=== PATIENT | male | born 1950 | race Caucasian/White ===

== ENCOUNTER 2016-11-25 13:04 | Emergency (ER) | payer OTHER ==
--- NOTE | 2016-11-25 14:41 | DIAGNOSTIC IMAGING REPORT ---
PROCEDURE: XR CHEST 2 VIEW INDICATION: COUGH TECHNIQUE: PA and lateral views. COMPARISON: Compared to chest x-ray and 03/01/2014 and 12/13/2009. FINDINGS: There is mild chronic elevation of the right hemidiaphragm. Lungs are clear. Heart and mediastinum are of normal size. There is a 2.3 cm chronic dystrophic calcification in the right lower neck (possible thyroid calcification). Thorax is normal. Status post laparoscopic gastric band. IMPRESSION: 1. Mild chronic elevation of the right hemidiaphragm. 2. Otherwise negative chest.
--- NOTE | 2016-11-25 15:24 | ED CLINICAL REPORT ---
Clinical Report - Physicians/Mid Levels [facility] [address] [place] [address] 11/25/2016 13:09 Patient: OFE IGLESIAS Time Seen: 13:29; initial patient contact, initial documentation, patient care assumed. Arrived- By private vehicle. Historian- patient and spouse. HISTORY OF PRESENT ILLNESS Chief Complaint: COUGH and FEVER. This started about 4 days ago and is still present. The illness is described as moderate. The patient has had a cough, nasal congestion and a nasal discharge. He has had scant amounts of thick, yellow, green sputum. No difficulty breathing, chest discomfort or pain, sore throat or sinus pressure. No sinus drainage or ear pain. He has had fever of 99.2 F orally. Additional history - No known contact with a sick individual. No recent travel. Similar symptoms previously: None. Recent medical care: Not recently seen/assessed. REVIEW OF SYSTEMS No headache, vomiting or diarrhea. All systems otherwise negative, except as recorded above. PAST HISTORY See nurses notes. PROBLEMS: Hypoxia. Anemia. Diabetic Ketoacidosis. Hyperkalemia. Renal Failure. Hereditary multiple exostosis. Pancreatitis. Vomiting. Edema. Immunizations. Hypertension. Septic Joint. Diabetes Mellitus. --13:22 Merline Mcdonald. ADDITIONAL SURGERIES: Bone spurt surgery. Cholecystectomy. Knee Surgery. Lap band [2006]. Left knee surgery. Nasal surgery. --13:22 Merline Mcdonald. sleeps with sleep apnea machine and oxygen. SOCIAL HISTORY Never smoker. Not exposed to second-hand smoke at home. No alcohol use or drug use. Is a local resident. He lives with spouse. FAMILY HISTORY Negative. ADDITIONAL NOTES The nursing notes have been reviewed with agreement regarding the chief complaint, HPI, ROS, PMH and patient medications and allergies. PHYSICAL EXAM Vital Signs: 11/25/2016 13:14 BP: 120/65. HR: 94. RR: 22. O2 saturation: 90%. Temp: 98.7 F. Have been reviewed as abnormal. Blood pressure normal. Heart rate normal. Respiratory rate normal. Temperature normal. Oxygen saturation low. Appearance: Alert. No acute distress. Eyes: Pupils equal, round and reactive to light. Eyes normal inspection. ENT: Ears normal. Nose normal. Pharynx normal. Uvula midline. Neck: Normal inspection. Neck supple. CVS: Normal heart rate and rhythm. Heart sounds normal. Pulses normal. Respiratory: No respiratory distress. Breath sounds abnormal. Expiratory mild bilateral wheezes diffusely (PO94%). Abdomen: Obese (morbid). Back: Normal inspection. Skin: Skin warm and dry. Normal skin color. No rash. Normal skin turgor. Extremities: Extremities exhibit normal ROM. No lower extremity edema. Neuro: Oriented X 3. No motor deficit. No sensory deficit. LABS, X-RAYS, AND EKG Chest X-ray: Normal Chest X-Ray. (IMPRESSION: 1. Mild chronic elevation of the right hemidiaphragm. 2. Otherwise negative chest. Electronically Final signed by:Prateek Pruitt MD 11/25/2016 2:38:16 PM). The X-rays were interpreted by the radiologist and contemporaneously by me. PROGRESS AND PROCEDURES Course of Care: 13:40 11/25/16. pt has brief alissa, nothing alarming, see report for full details 1410. nurse reporting neb tx going now 1450. Resp even and unlabored, nad, B breath sounds CTA, PO91-94% tx options discussed with going home and if any issues return stat, or admit for obs, pt stated he felt much better and did not want to stay, denied any breathing issue. Patient and spouse counseled in person regarding the patient's stable condition, test results and diagnosis. 14:50. Differential Diagnosis: Other possible considerations: bronchitis, pneumonia, chf, copd, emphysema, flu, viral illness, uri. Above considerations are based on history, physical exam and X-Ray data. Differential diagnosis was discussed with patient and patient's spouse. Disposition: Discharged home in good and improved condition (15:24). Condition: good and stable. CLINICAL IMPRESSION 11/25/2016 14:29 BP: 109/46. HR: 97. RR: 20. O2 saturation: 93%. Vital Signs: have been reviewed as normal and appear to be correct. Acute viral bronchitis. INSTRUCTIONS Alternate Tylenol (Acetaminophen) and Motrin (Ibuprofen) for fever, temperature greater than 101 degrees orally. Take according to label instructions. Drink plenty of fluids for the next 24 hours until better. Warnings: GENERAL WARNINGS: Return or contact your physician immediately if your condition worsens or changes unexpectedly, if not improving as expected, or if other problems arise. Specifically return if problem worsens. Prescription Medications: Albuterol HFA oral inhaler: inhale 1 to 2 puffs every four to six hours as needed for difficulty breathing. Dispense one (1) unit. No refills. Prednisone 20 mg: take 3 orally every day for 5 days. Dispense fifteen (15). No refills. Follow-up: Follow up with your doctor in about three days even if well. Call for an appointment. Summary of care provided to patient. Understanding of the discharge instructions verbalized by patient. (Electronically signed by Ryanne Ahumada A.R.N.P. 11/25/2016 23:58)
--- NOTE | 2016-11-25 15:25 | ED NURSING NOTES ---
Clinical Report - Nurses [facility] [address] [place] [address] 11/25/2016 13:09 [id number] Triage time 13:14 Nov 25 2016. Acuity: LEVEL 3. Chief Complaint: FEVER and COUGH. SEPSIS SCREEN: Sepsis Screen: negative. Infection suspected/documented. MIRYAM COMA SCORE: Miryam Coma Scale: 15- eyes open spontaneously (4); best verbal response- oriented x 4 (5); best motor response- obeys commands (6). --13:24 Merline Mcdonald 13:14 11/25/16. BP: 120/65. HR: 94. RR: 22. O2 saturation: 90% on room air. Temp: 98.7 F (oral). --13:24 Merline Mcdonald. Weight: 127.4 kg stated. Height/Length: 64 inches Per Patient. BMI: 48.2. --13:21 Merline Mcdonald. Medications Zoloft Oral. --13:19 Merline Mcdonald Yaloric. --13:19 Merline Mcdonald ASA Oral 325mg daily. Cephalexin Oral 1000 mg, 3x a day. --13:20 Merline Mcdonald Cyclobenzaprine HCl Oral 10 mg, at bedtime. Fenofibrate Oral 160mg , daily . Furosemide 80mg, twice daily. HumaLOG Subcutaneous, before meals (sliding scale). HydrOXYzine HCl Oral 25 mg, as needed. Iron Oral 130mg, daily. Lantus Subcutaneous 52 units, 2x a day. Lisinopril Oral 20 mg, daily. Multivitamins Oral. Prochlorperazine Maleate Oral 5 mg, as needed. Simvastatin Oral 40 mg, daily. Spironolactone 25mg, daily. --13:20 Merline Mcdonald. Medication/allergy information source: the patient. --13:24 Merline Mcdonald. Allergies "Most soaps". --13:21 Merline Mcdonald Benadryl. Codeine. Erythromycin. PCN. Phisoderm. Sulfa Drugs. Tape. (plastic tape) --13:21 Merline Mcdonald. History Arrived by private vehicle. Historian: patient. Accompanied by family. Primary physician (Delano Marcus, winding department supervisor Dr. andrea). Onset. (4 days). ( Patient reports he has been sick for four days with congestion, cough and fever. He has sleep apnea and uses home oxygen at night. His reports him needing to sleep sitting up and an oxygen of 90% on two liters.). PAST MEDICAL HX: Immunizations: up-to-date. SOCIAL HX: Never smoker. No alcohol use. No infectious disease exposure. ABUSE ASSESSMENT: No report of abuse. FALL RISK ASSESSMENT: Fall risk assessment completed. No fall risk identified. NUTRITIONAL RISK ASSESSMENT: The nutritional risk assessment revealed no deficiencies. FUNCTIONAL ASSESSMENT: Functional assessment: no impairments noted. LEARNING NEEDS ASSESSMENT: The learning needs assessment revealed no barriers. SKIN INTEGRITY ASSESSMENT: Skin integrity risk assessment completed. No skin integrity risk identified. --13:24 Merline Mcdonald. PROBLEMS: Hypoxia. Anemia. Diabetic Ketoacidosis. Hyperkalemia. Renal Failure. Hereditary multiple exostosis. Pancreatitis. Vomiting. Edema. Immunizations. Hypertension. Septic Joint. Diabetes Mellitus. --13:22 Merline Mcdonald. ADDITIONAL SURGERIES: Bone spurt surgery. Cholecystectomy. Knee Surgery. Lap band [2006]. Left knee surgery. Nasal surgery. --13:22 Merline Mcdonald. Interventions ID band on patient. To treatment room. --13:24 Merline Mcdonald. PHYSICAL ASSESSMENT 13:25 11/25/16. Ambulatory to room. GENERAL / NEURO / PSYCH: Alert. Oriented X 4. He appears uncomfortable. HEENT: No facial asymmetry noted. Mucous membranes are pink. RESPIRATORY: Mild respiratory distress. The patient can speak in full sentences. CVS: Normal sinus rhythm noted. GI / : Abdomen soft and nontender. SKIN: Skin is warm and dry. --13:25 Merline Mcdonald. NURSING PROGRESS NOTES Oxygen administered by nasal cannula at 2 liters. Pulse oximeter and NIBP monitor placed on patient; monitor alarms on. Patient gowned. Head of bed elevated. Reassurance given to the patient and patient's family. Two patient identifiers checked. Call light placed in reach. Side rails up x 1. Bed placed in lowest position. Brakes of bed on. Patient ready for evaluation- chart flagged and ED physician notified. --13:25 Merline Mcdonald 13:51 11/25/2016 Solu-Medrol (MethylPREDNISolone Sodium Succ) IM 125 mg given. Given in the right deltoid. Allergies verified and confirmed 5 rights. --13:51 Janusz Mcdonaldnah 13:54 11/25/2016 ALBUTEROL NEB W ATROVENT Neb TX 1 unit dose given. Given by the respiratory therapist. --13:54 Raffaele Melara 13:54 11/25/2016 Albuterol Neb TX 2 unit dose given. Given by the respiratory therapist. --13:54 Raffaele Melara Patient transported to radiology by stretcher with tech. (14:Nov 25 2016). --14:20 HarryNicole velazquezh Patient returned from radiology by stretcher with tech. (14:Nov 25 2016). --14:20 Merline Mcdonald 14:29 11/25/16. BP: 109/46. HR: 97. RR: 20. O2 saturation: 93% on nasal cannula at 2 liters/minute. --14:32 Harry, Merline. DISPOSITION / DISCHARGE 15:35 11/25/16. BP: 104/45. HR: 98. RR: 20. O2 saturation: 93% on room air. Temp: 98.6 F (oral). Pain level now: 0/10. --15:37 Merline Mcdonald 15:35 11/25/16. ( Provider aware of vitals, patient clear for discharge). --15:46 HarryMerline 15:37 11/25/16. Condition at departure: improved and stable. The goals identified in the patient's plan of care were met. No learning barriers present. Discharge instructions provided and reviewed with the patient and spouse. Reviewed medication(s) side effects, precautions, dosing and course information. Prescription(s) given to the patient. Patient and spouse verbalized understanding. Written instructions provided in Indonesian. ( Drink plenty of fluids. Follow up with your PCP in three days. Return if symptoms worsen. Patient and spouse understood discharge instructions and had no questions at this time.). The patient was discharged by the physician print shop assistant. He was discharged home and accompanied by spouse. He left the Emergency Department ambulatory and via private vehicle. Spouse driving. FALL RISK ASSESSMENT: Fall risk assessment completed. No fall risk identified. --15:37 Merline Mcdonald. Locked/Released at 11/25/2016 15:47 by Merline Mcdonald,
--- NOTE | 2016-11-25 15:25 | ED ORDER SUMMARY ---
..... Patient: OFE IGLESIAS OrderSheet [facility] VisitID: [id number] [place] [address] 66y, M Registration Date/Time: 11/25/2016 ORDER SHEET Weight: 127.4 kg (stated) Allergies: "Most soaps", Benadryl, Codeine, Erythromycin, PCN, Phisoderm, Sulfa Drugs, Tape GENERAL ORDERS: Chest 2V Urgent (13:39 11/25/2016 HBivens A.R.N.P.) (Ack 13:40 KHoerner) (14:22 KHoerner) MEDICATION ORDERS: Albuterol Neb w Atrovent 1 unit dose (NOW) (13:39 11/25/2016 HBivens A.R.N.P.) (Ack 13:51 HSoule) (13:54 DBourey) Albuterol Neb Tx 2 unit doses (NOW) (13:39 11/25/2016 HBivens A.R.N.P.) (Ack 13:51 HSoule) (13:54 DBourey) Solu-MEDROL IM 125 mg (NOW) (13:39 11/25/2016 HBivens A.R.N.P.) (13:51 HSoule) IV FLUIDS: IV NS : initial bolus 1000 mL (1000 mL/hr), then none - (NOW) (13:36 11/25/2016 HBivens A.R.N.P.) (Ack 13:37 HSoule) (Cancelled: Other13:38 HBivens A.R.N.P.) ORDER SHEET NOTES: [Electronically signed by Merline Mcdonald (15:47 11/25/2016)] [Electronically signed by Ryanne Ahumada A.R.N.P. (23:58 11/25/2016)] [Electronically locked/signed by Merline Mcdonald (15:47 11/25/2016)]
--- NOTE | 2016-11-25 15:25 | ED ORDER SUMMARY ---
..... Patient: OFE ILGESIAS OrderSheet [facility] VisitID: [id number] [place] [address] 66y, M Registration Date/Time: 11/25/2016 ORDER SHEET Weight: 127.4 kg (stated) Allergies: "Most soaps", Benadryl, Codeine, Erythromycin, PCN, Phisoderm, Sulfa Drugs, Tape GENERAL ORDERS: Chest 2V Urgent (13:39 11/25/2016 HBivens A.R.N.P.) (Ack 13:40 KHoerner) (14:22 KHoerner) MEDICATION ORDERS: Albuterol Neb w Atrovent 1 unit dose (NOW) (13:39 11/25/2016 HBivens A.R.N.P.) (Ack 13:51 HSoule) (13:54 DBourey) Albuterol Neb Tx 2 unit doses (NOW) (13:39 11/25/2016 HBivens A.R.N.P.) (Ack 13:51 HSoule) (13:54 DBourey) Solu-MEDROL IM 125 mg (NOW) (13:39 11/25/2016 HBivens A.R.N.P.) (13:51 HSoule) IV FLUIDS: IV NS : initial bolus 1000 mL (1000 mL/hr), then none - (NOW) (13:36 11/25/2016 HBivens A.R.N.P.) (Ack 13:37 HSoule) (Cancelled: Other13:38 HBivens A.R.N.P.) ORDER SHEET NOTES: [Electronically signed by Merline Mcdonald (15:47 11/25/2016)] [Electronically signed by Ryanne Ahumada A.R.N.P. (23:58 11/25/2016)] [Electronically locked/signed by Merline Mcdonald (15:47 11/25/2016)]
--- NOTE | 2016-11-25 15:25 | ED NURSING NOTES ---
Clinical Report - Nurses [facility] [address] [place] [address] 11/25/2016 13:09 [id number] Triage time 13:14 Nov 25 2016. Acuity: LEVEL 3. Chief Complaint: FEVER and COUGH. SEPSIS SCREEN: Sepsis Screen: negative. Infection suspected/documented. MIRYAM COMA SCORE: Miryam Coma Scale: 15- eyes open spontaneously (4); best verbal response- oriented x 4 (5); best motor response- obeys commands (6). --13:24 Merline Mcdonald 13:14 11/25/16. BP: 120/65. HR: 94. RR: 22. O2 saturation: 90% on room air. Temp: 98.7 F (oral). --13:24 Merline Mcdonald. Weight: 127.4 kg stated. Height/Length: 64 inches Per Patient. BMI: 48.2. --13:21 Merline Mcdonald. Medications Zoloft Oral. --13:19 Merline Mcdonald Yaloric. --13:19 Merline Mcdonald ASA Oral 325mg daily. Cephalexin Oral 1000 mg, 3x a day. --13:20 Merline Mcdonald Cyclobenzaprine HCl Oral 10 mg, at bedtime. Fenofibrate Oral 160mg , daily . Furosemide 80mg, twice daily. HumaLOG Subcutaneous, before meals (sliding scale). HydrOXYzine HCl Oral 25 mg, as needed. Iron Oral 130mg, daily. Lantus Subcutaneous 52 units, 2x a day. Lisinopril Oral 20 mg, daily. Multivitamins Oral. Prochlorperazine Maleate Oral 5 mg, as needed. Simvastatin Oral 40 mg, daily. Spironolactone 25mg, daily. --13:20 Merline Mcdonald. Medication/allergy information source: the patient. --13:24 Merline Mcdonald. Allergies "Most soaps". --13:21 Merline Mcdonald Benadryl. Codeine. Erythromycin. PCN. Phisoderm. Sulfa Drugs. Tape. (plastic tape) --13:21 Merline Mcdonald. History Arrived by private vehicle. Historian: patient. Accompanied by family. Primary physician (Delano Marcus, wet primer powder blender Dr. andrea). Onset. (4 days). ( Patient reports he has been sick for four days with congestion, cough and fever. He has sleep apnea and uses home oxygen at night. His reports him needing to sleep sitting up and an oxygen of 90% on two liters.). PAST MEDICAL HX: Immunizations: up-to-date. SOCIAL HX: Never smoker. No alcohol use. No infectious disease exposure. ABUSE ASSESSMENT: No report of abuse. FALL RISK ASSESSMENT: Fall risk assessment completed. No fall risk identified. NUTRITIONAL RISK ASSESSMENT: The nutritional risk assessment revealed no deficiencies. FUNCTIONAL ASSESSMENT: Functional assessment: no impairments noted. LEARNING NEEDS ASSESSMENT: The learning needs assessment revealed no barriers. SKIN INTEGRITY ASSESSMENT: Skin integrity risk assessment completed. No skin integrity risk identified. --13:24 Merline Mcdonald. PROBLEMS: Hypoxia. Anemia. Diabetic Ketoacidosis. Hyperkalemia. Renal Failure. Hereditary multiple exostosis. Pancreatitis. Vomiting. Edema. Immunizations. Hypertension. Septic Joint. Diabetes Mellitus. --13:22 Merline Mcdonald. ADDITIONAL SURGERIES: Bone spurt surgery. Cholecystectomy. Knee Surgery. Lap band [2006]. Left knee surgery. Nasal surgery. --13:22 Merline Mcdonald. Interventions ID band on patient. To treatment room. --13:24 Merline Mcdonald. PHYSICAL ASSESSMENT 13:25 11/25/16. Ambulatory to room. GENERAL / NEURO / PSYCH: Alert. Oriented X 4. He appears uncomfortable. HEENT: No facial asymmetry noted. Mucous membranes are pink. RESPIRATORY: Mild respiratory distress. The patient can speak in full sentences. CVS: Normal sinus rhythm noted. GI / : Abdomen soft and nontender. SKIN: Skin is warm and dry. --13:25 Merline Mcdonald. NURSING PROGRESS NOTES Oxygen administered by nasal cannula at 2 liters. Pulse oximeter and NIBP monitor placed on patient; monitor alarms on. Patient gowned. Head of bed elevated. Reassurance given to the patient and patient's family. Two patient identifiers checked. Call light placed in reach. Side rails up x 1. Bed placed in lowest position. Brakes of bed on. Patient ready for evaluation- chart flagged and ED physician notified. --13:25 Merline Mcdonald 13:51 11/25/2016 Solu-Medrol (MethylPREDNISolone Sodium Succ) IM 125 mg given. Given in the right deltoid. Allergies verified and confirmed 5 rights. --13:51 Janusz Mcdonaldnah 13:54 11/25/2016 ALBUTEROL NEB W ATROVENT Neb TX 1 unit dose given. Given by the respiratory therapist. --13:54 Raffaele Melara 13:54 11/25/2016 Albuterol Neb TX 2 unit dose given. Given by the respiratory therapist. --13:54 Raffaele Melara Patient transported to radiology by stretcher with tech. (14:Nov 25 2016). --14:20 HarryNicole velazquezh Patient returned from radiology by stretcher with tech. (14:Nov 25 2016). --14:20 Merline Mcdonald 14:29 11/25/16. BP: 109/46. HR: 97. RR: 20. O2 saturation: 93% on nasal cannula at 2 liters/minute. --14:32 Harry, Merline. DISPOSITION / DISCHARGE 15:35 11/25/16. BP: 104/45. HR: 98. RR: 20. O2 saturation: 93% on room air. Temp: 98.6 F (oral). Pain level now: 0/10. --15:37 Merline Mcdonald 15:35 11/25/16. ( Provider aware of vitals, patient clear for discharge). --15:46 HarryMerline 15:37 11/25/16. Condition at departure: improved and stable. The goals identified in the patient's plan of care were met. No learning barriers present. Discharge instructions provided and reviewed with the patient and spouse. Reviewed medication(s) side effects, precautions, dosing and course information. Prescription(s) given to the patient. Patient and spouse verbalized understanding. Written instructions provided in Spanish. ( Drink plenty of fluids. Follow up with your PCP in three days. Return if symptoms worsen. Patient and spouse understood discharge instructions and had no questions at this time.). The patient was discharged by the physician preschool assistant principal. He was discharged home and accompanied by spouse. He left the Emergency Department ambulatory and via private vehicle. Spouse driving. FALL RISK ASSESSMENT: Fall risk assessment completed. No fall risk identified. --15:37 Merline Mcdonald. Locked/Released at 11/25/2016 15:47 by Merline Mcdonald,
--- NOTE | 2016-11-25 23:58 | ED MED RECONCILIATION SUMMARY ---
Patient: OFE IGLESIAS Medication Reconciliation Report [facility] VisitID: [id number] [address] [place] [address] 66y, M Registration Date/Time: 11/25/2016 Weight: 127.4 kg Height/Length: 64 in. BMI: 48.2 ALLERGIES: "Most soaps", Benadryl, Codeine, Erythromycin, PCN, Phisoderm, Sulfa Drugs, Tape The patient's Home Medications are listed below: THE FOLLOWING MEDICATIONS NEED TO BE RECONCILED: ASA Oral 325mg daily Cephalexin Oral 1000 mg, 3x a day Cyclobenzaprine HCl Oral 10 mg, at bedtime Fenofibrate Oral 160mg , daily Furosemide 80mg, twice daily HumaLOG Subcutaneous, before meals, sliding scale HydrOXYzine HCl Oral 25 mg Iron Oral 130mg, daily Lantus Subcutaneous 52 units, 2x a day Lisinopril Oral 20 mg, daily Multivitamins Oral Prochlorperazine Maleate Oral 5 mg Simvastatin Oral 40 mg, daily Spironolactone 25mg, daily Yaloric Zoloft Oral The source(s) of the original Home Medication information: patient The following Medications were given to the patient in the Emergency Department: Solu-Medrol [IM] IM 125 mg, administered: 11/25/2016 1:51:00 PM ALBUTEROL NEB W ATROVENT Neb TX 1 unit dose, administered: 11/25/2016 1:54:00 PM Albuterol [Neb Tx] Neb TX 2 unit dose, administered: 11/25/2016 1:54:00 PM The following Medications were prescribed to the patient: Albuterol HFA oral inhaler: inhale 1 to 2 puffs every four to six hours as needed for difficulty breathing. Dispense one (1) unit. No refills. -- Ryanne Ahumada A.R.NMelP. Prednisone 20 mg: take 3 orally every day for 5 days. Dispense fifteen (15). No refills. -- Ryanne Ahumada A.R.N.P.
--- NOTE | 2016-11-25 23:58 | ED MAR SUMMARY ---
..... Medication Administration Record [address] [place] [address] Patient: OFE IGLESIAS Visit ID: [id number] 66y, M Weight: 127.4 kg Height/Length: 64 in BMI: 48.2 ALLERGIES: "Most soaps", Benadryl, Codeine, Erythromycin, PCN, Phisoderm, Sulfa Drugs, Tape Given 13:51 11/25/2016 Merline Mcdonald, Medication Administered: SOLU-MEDROL [IM] (METHYLPREDNISOLONE SODIUM SUCC), Dose: 125 mg IM. Medication Ordered: Solu-MEDROL IM 125 mg (NOW). Given 13:54 11/25/2016 Raffaele Melara, Medication Administered: ALBUTEROL NEB W ATROVENT, Dose: 1 unit dose Neb TX. Medication Ordered: Albuterol Neb w Atrovent 1 unit dose (NOW). Given 13:54 11/25/2016 Raffaele Melara, Medication Administered: ALBUTEROL [NEB TX], Dose: 2 unit dose Neb TX. Medication Ordered: Albuterol Neb Tx 2 unit doses (NOW).
--- NOTE | 2016-11-25 23:58 | ED DISCHARGE INSTRUCTIONS ---
Patient: OFE IGLESIAS General Instructions [facility] VisitID: [id number] [place] [address] 66y, M Registration Date/Time: 11/25/2016 11/25/2016 14:29 BP: 109/46. HR: 97. RR: 20. O2 saturation: 93%. Vital Signs: have been reviewed as normal and appear to be correct. Acute viral bronchitis. INSTRUCTIONS Alternate Tylenol (Acetaminophen) and Motrin (Ibuprofen) for fever, temperature greater than 101 degrees orally. Take according to label instructions. Drink plenty of fluids for the next 24 hours until better. Warnings: GENERAL WARNINGS: Return or contact your physician immediately if your condition worsens or changes unexpectedly, if not improving as expected, or if other problems arise. Specifically return if problem worsens. Prescription Medications: Albuterol HFA oral inhaler: inhale 1 to 2 puffs every four to six hours as needed for difficulty breathing. Dispense one (1) unit. No refills. Prednisone 20 mg: take 3 orally every day for 5 days. Dispense fifteen (15). No refills. Follow-up: Follow up with your doctor in about three days even if well. Call for an appointment. Summary of care provided to patient. Understanding of the discharge instructions verbalized by patient. ADDITIONAL INFORMATION Bronchitis, Viral (Adult: No Abx) You have a viral bronchitis. This illness is contagious during the first few days and is spread through the air by coughing and sneezing, or by direct contact (touching the sick person and then touching your own eyes, nose, or mouth). Most viral illnesses resolve within 10-14 days with rest and simple home remedies, although they may sometimes last for several weeks. Antibiotics will not kill a virus and are generally not prescribed for this condition. Home Care: If symptoms are severe, rest at home for the first 2-3 days. When resuming activity, don't let yourself become overly tired. Do not smoke and avoid the smoke of others. You may use acetaminophen (Tylenol) or ibuprofen (Motrin, Advil) to control fever or pain, unless another pain medicine was prescribed. [NOTE: If you have chronic liver or kidney disease or ever had a stomach ulcer or GI bleeding, talk with your doctor before using these medicines.] (Aspirin should never be used in anyone under 18 years of age who is ill with a fever. It may cause severe liver damage.) Your appetite may be poor so a light diet is fine. Avoid dehydration by drinking 6-8 glasses of fluids per day (water, sport drinks such as Gatorade, juices, tea, soup, etc.). Extra fluids will help loosen secretions in the nose and lung. Pvdz-tbp-vyiuqqe cold medicines will not shorten the length of the illness, but may be helpful for cough (Robitussin DM), sore throat (Chloraseptic lozenges or spray), nasal and sinus congestion (Actifed or Sudafed). [NOTE: Do not use decongestants if you have high blood pressure.] Follow Up with your doctor or as directed by our staff if you are not improving over the next week. NOTE: If you are age 65 or older, or if you have chronic asthma or COPD, we recommend a PNEUMOCOCCAL VACCINATION every five years and a yearly INFLUENZAVACCINATION (FLU-SHOT) every . Ask your doctor about this. If you had an X-ray, a radiologist will review it. You will be notified of any new findings that may affect your care.] Get Prompt Medical Attention if any of the following occur: Fever over 100.4F (38.0C) for more than three days Trouble breathing, wheezing or pain with breathing Coughing up blood or increased amounts of colored sputum Weakness, drowsiness, headache, facial pain, ear pain or a stiff neck Bronchitis With Wheezing (Viral Or Bacterial: Adult) Bronchitis is an infection of the air passages. It often occurs during the common cold and is usually caused by a virus. Symptoms include cough with mucus (phlegm) and low-grade fever. If there is a lot of inflammation, air flow is restricted. The air passages may also go into spasm, especially if you are an asthmatic. This causes wheezing and difficulty breathing even in persons who do not have asthma. Bronchitis usually lasts 7-14 days. The wheezing should improve with treatment during the first week. An inhaler is often prescribed to relax the air passages and stop wheezing. Antibiotics will be prescribed if your doctor thinks there is also a secondary bacterial infection. Home Care: If symptoms are severe, rest at home for the first 2-3 days. When resuming activity, don't let yourself become overly tired. Do not smoke and avoid exposure to the smoke of others. You may use acetaminophen (Tylenol) or ibuprofen (Motrin, Advil) to control fever, unless another medicine was prescribed. [NOTE: If you have chronic liver or kidney disease or ever had a stomach ulcer or GI bleeding, talk with your doctor before using these medicines.] (Aspirin should never be used in anyone under 18 years of age who is ill with a fever. It may cause severe liver damage.) Your appetite may be poor so a light diet is fine. Avoid dehydration by drinking 6-8 glasses of fluids per day (water, soft, drinks, juices, tea, soup, etc.). Extra fluids will help loosen secretions in the lungs. Wwxb-mcv-oggqotc cough medicines that containdextromethorphan(such as Robitussin DM) and decongestants (Actifed or Sudafed) may help relieve cough and congestion. [NOTE: Do not use decongestants if you have high blood pressure.] If you were given an inhaler, use it exactly as directed. If you need to use it more often than prescribed, your condition may be worsening. Contact your doctor or this facility. If prescribed, finish all antibiotic medicine, even if you are feeling better after only a few days. Follow Up With Your Doctor Or As Directed If You Are Not Starting To Feel Better After Three Days. [NOTE: If you are age 65 or older, or if you have chronic asthma or COPD, we recommend a pneumococcal vaccination every five years and a yearly influenza vaccination (flu shot) every . Ask your doctor about this. If you had an x-ray or EKG (electrocardiogram), it will be reviewed by a specialist. You will be notified of any new findings that may affect your care.] Get Prompt Medical Attention If Any Of The Following Occur: Increased wheezing, shortness of breath or pain with breathing Fever of 100.4F (38C) oral or higher, not better with fever medication Coughing up blood or increasing amounts of colored sputum Weakness, drowsiness, headache, facial pain, ear pain or a stiff neck Lower leg swelling, tenderness, redness or pain Fever Control (Adult) A fever is a natural reaction of the body to an illness. In most cases, the temperature itself is not harmful. It actually helps the body fight infections. A fever does not need to be treated unless you feel very uncomfortable. Home Care If you feel warm, check your temperature. If you feel very uncomfortable and your temperature is at or higher than 100.4F (38C) oral, you may take acetaminophen (Tylenol) every 4 to 6 hours. If you cant take or keep down oral medicine, ask your pharmacist for Tylenol suppositories, which you can get without a prescription. If the fever does not respond to acetaminophen within 1 hour, take ibuprofen (Advil or Motrin). If this works, keep taking the ibuprofen every 6 to 8 hours. Note: If you have chronic liver or kidney disease or ever had a stomach ulcer or GI bleeding, talk with your doctor before using these medications. If either medication alone does not keep the fever down, you may alternate the two medicines every 3 to 4 hours, only if your healthcare provider has instructed you to do so. For example, take Motrin then wait 3 hours, take Tylenol then wait 3 hours, take Motrin, and so on. Follow your healthcare providers instructions exactly. Clothing: Keep clothing light because excess body heat is lost through the skin. The fever will go up if you wear extra layers or wrap in blankets. Fluids: Fever causes the body to lose water through evaporation. Drink plenty of fluids such as water, juice, clear sodas, paulette nat, or lemonade. Do not use aspirin in anyone under 18 years of age who is ill with a fever. It can cause severe liver damage. Follow Up with your doctor or as advised by our staff if you do not get better after 48 hours. Get Prompt Medical Attention if any of the following occur: Fever does not get better after taking fever medication Fast or difficult breathing Earache, sinus pain, stiff or painful neck, headache, repeated diarrhea or vomiting You feel unusually irritable, drowsy, or confused A rash appears You feel weak or dizzy, or that you might faint Albuterol Sulfate Pressurized inhalation, suspension What is this medicine? ALBUTEROL (al BYOO ter ole) is a bronchodilator. It helps open up the airways in your lungs to make it easier to breathe. This medicine is used to treat and to prevent bronchospasm. How should I use this medicine? This medicine is for inhalation through the mouth. Follow the directions on your prescription label. Take your medicine at regular intervals. Do not use more often than directed. Make sure that you are using your inhaler correctly. Ask you doctor or health care provider if you have any questions. Talk to your drone software development engineer regarding the use of this medicine in children. Special care may be needed. What side effects may I notice from receiving this medicine? Side effects that you should report to your doctor or health tire care manager as soon as possible: allergic reactions like skin rash, itching or hives, swelling of the face, lips, or tongue breathing problems chest pain feeling faint or lightheaded, falls high blood pressure irregular heartbeat fever muscle cramps or weakness pain, tingling, numbness in the hands or feet vomiting Side effects that usually do not require medical attention (report to your doctor or health tire care manager if they continue or are bothersome): cough difficulty sleeping headache nervousness or trembling stomach upset stuffy or runny nose throat irritation unusual taste What may interact with this medicine? anti-infectives like chloroquine and pentamidine caffeine cisapride diuretics medicines for colds medicines for depression or for emotional or psychotic conditions medicines for weight loss including some herbal products methadone some antibiotics like clarithromycin, erythromycin, levofloxacin, and linezolid some heart medicines steroid hormones like dexamethasone, cortisone, hydrocortisone theophylline thyroid hormones What if I miss a dose? If you miss a dose, use it as soon as you can. If it is almost time for your next dose, use only that dose. Do not use double or extra doses. Where should I keep my medicine? Keep out of the reach of children. Store at room temperature between 15 and 30 degrees C (59 and 86 degrees F). The contents are under pressure and may burst when exposed to heat or flame. Do not freeze. This medicine does not work as well if it is too cold. Throw away any unused medicine after the expiration date. Inhalers need to be thrown away after the labeled number of puffs have been used or by the expiration date; whichever comes first. Ventolin HFA should be thrown away 12 months after removing from foil pouch. Check the instructions that come with your medicine. What should I tell my health care provider before I take this medicine? They need to know if you have any of the following conditions: diabetes heart disease or irregular heartbeat high blood pressure pheochromocytoma seizures thyroid disease an unusual or allergic reaction to albuterol, levalbuterol, sulfites, other medicines, foods, dyes, or preservatives or trying to get breast-feeding What should I watch for while using this medicine? Tell your doctor or health tire care manager if your symptoms do not improve. Do not use extra albuterol. If your asthma or bronchitis gets worse while you are using this medicine, call your doctor right away. If your mouth gets dry try chewing sugarless gum or sucking hard candy. Drink water as directed. Prednisone Oral tablet What is this medicine? PREDNISONE (PRED ni sone) is a corticosteroid. It is commonly used to treat inflammation of the skin, joints, lungs, and other organs. Common conditions treated include asthma, allergies, and arthritis. It is also used for other conditions, such as blood disorders and diseases of the adrenal glands. How should I use this medicine? Take this medicine by mouth with a glass of water. Follow the directions on the prescription label. Take this medicine with food. If you are taking this medicine once a day, take it in the morning. Do not take more medicine than you are told to take. Do not suddenly stop taking your medicine because you may develop a severe reaction. Your doctor will tell you how much medicine to take. If your doctor wants you to stop the medicine, the dose may be slowly lowered over time to avoid any side effects. Talk to your drone software development engineer regarding the use of this medicine in children. Special care may be needed. What side effects may I notice from receiving this medicine? Side effects that you should report to your doctor or health tire care manager as soon as possible: allergic reactions like skin rash, itching or hives, swelling of the face, lips, or tongue changes in emotions or moods changes in vision depressed mood eye pain fever or chills, cough, sore throat, pain or difficulty passing urine increased thirst swelling of ankles, feet Side effects that usually do not require medical attention (report to your doctor or health tire care manager if they continue or are bothersome): confusion, excitement, restlessness headache nausea, vomiting skin problems, acne, thin and shiny skin trouble sleeping weight gain What may interact with this medicine? Do not take this medicine with any of the following medications: metyrapone mifepristone This medicine may also interact with the following medications: aminoglutethimide amphotericin B aspirin and aspirin-like medicines barbiturates certain medicines for diabetes, like glipizide or glyburide cholestyramine cholinesterase inhibitors cyclosporine digoxin diuretics ephedrine female hormones, like estrogens and control pills isoniazid ketoconazole NSAIDS, medicines for pain and inflammation, like ibuprofen or naproxen phenytoin rifampin toxoids vaccines warfarin What if I miss a dose? If you miss a dose, take it as soon as you can. If it is almost time for your next dose, talk to your doctor or health tire care manager. You may need to miss a dose or take an extra dose. Do not take double or extra doses without advice. Where should I keep my medicine? Keep out of the reach of children. Store at room temperature between 15 and 30 degrees C (59 and 86 degrees F). Protect from light. Keep container tightly closed. Throw away any unused medicine after the expiration date. What should I tell my health care provider before I take this medicine? They need to know if you have any of these conditions: Minetto's syndrome diabetes glaucoma heart disease high blood pressure infection (especially a virus infection such as chickenpox, cold sores, or herpes) kidney disease liver disease mental illness myasthenia gravis osteoporosis seizures stomach or intestine problems thyroid disease an unusual or allergic reaction to lactose, prednisone, other medicines, foods, dyes, or preservatives or trying to get breast-feeding What should I watch for while using this medicine? Visit your doctor or health tire care manager for regular checks on your progress. If you are taking this medicine over a prolonged period, carry an identification card with your name and address, the type and dose of your medicine, and your doctor's name and address. This medicine may increase your risk of getting an infection. Tell your doctor or health tire care manager if you are around anyone with measles or chickenpox, or if you develop sores or blisters that do not heal properly. If you are going to have surgery, tell your doctor or health tire care manager that you have taken this medicine within the last twelve months. Ask your doctor or health tire care manager about your diet. You may need to lower the amount of salt you eat. This medicine may affect blood sugar levels. If you have diabetes, check with your doctor or health tire care manager before you change your diet or the dose of your diabetic medicine. You have been given the following additional information: Bronchitis, No Antibiotic (Adult) Bronchitis With Wheezing (Adult) Fever Control (Adult) Albuterol Sulfate Pressurized inhalation, suspension Prednisone Oral tablet (Electronically signed by Ryanne Ahumada A.R.N.P. 11/25/2016 23:58)
--- NOTE | 2016-11-25 23:58 | ED MED RECONCILIATION SUMMARY ---
Patient: OFE IGLESIAS Medication Reconciliation Report [facility] VisitID: [id number] [address] [place] [address] 66y, M Registration Date/Time: 11/25/2016 Weight: 127.4 kg Height/Length: 64 in. BMI: 48.2 ALLERGIES: "Most soaps", Benadryl, Codeine, Erythromycin, PCN, Phisoderm, Sulfa Drugs, Tape The patient's Home Medications are listed below: THE FOLLOWING MEDICATIONS NEED TO BE RECONCILED: ASA Oral 325mg daily Cephalexin Oral 1000 mg, 3x a day Cyclobenzaprine HCl Oral 10 mg, at bedtime Fenofibrate Oral 160mg , daily Furosemide 80mg, twice daily HumaLOG Subcutaneous, before meals, sliding scale HydrOXYzine HCl Oral 25 mg Iron Oral 130mg, daily Lantus Subcutaneous 52 units, 2x a day Lisinopril Oral 20 mg, daily Multivitamins Oral Prochlorperazine Maleate Oral 5 mg Simvastatin Oral 40 mg, daily Spironolactone 25mg, daily Yaloric Zoloft Oral The source(s) of the original Home Medication information: patient The following Medications were given to the patient in the Emergency Department: Solu-Medrol [IM] IM 125 mg, administered: 11/25/2016 1:51:00 PM ALBUTEROL NEB W ATROVENT Neb [place] 1 unit dose, administered: 11/25/2016 1:54:00 PM Albuterol [Neb Tx] Neb TX 2 unit dose, administered: 11/25/2016 1:54:00 PM The following Medications were prescribed to the patient: Albuterol HFA oral inhaler: inhale 1 to 2 puffs every four to six hours as needed for difficulty breathing. Dispense one (1) unit. No refills. -- Ryanne Ahumada A.R.NMelP. Prednisone 20 mg: take 3 orally every day for 5 days. Dispense fifteen (15). No refills. -- Ryanne Ahumada A.R.N.P.
--- NOTE | 2016-11-25 23:58 | ED MAR SUMMARY ---
..... Medication Administration Record [address] [place] [address] Patient: OFE IGLESIAS Visit ID: [id number] 66y, M Weight: 127.4 kg Height/Length: 64 in BMI: 48.2 ALLERGIES: "Most soaps", Benadryl, Codeine, Erythromycin, PCN, Phisoderm, Sulfa Drugs, Tape Given 13:51 11/25/2016 Merline Mcdonald, Medication Administered: SOLU-MEDROL [IM] (METHYLPREDNISOLONE SODIUM SUCC), Dose: 125 mg IM. Medication Ordered: Solu-MEDROL IM 125 mg (NOW). Given 13:54 11/25/2016 Raffaele Melara, Medication Administered: ALBUTEROL NEB W ATROVENT, Dose: 1 unit dose Neb [place]. Medication Ordered: Albuterol Neb w Atrovent 1 unit dose (NOW). Given 13:54 11/25/2016 Raffaele Melara, Medication Administered: ALBUTEROL [NEB TX], Dose: 2 unit dose Neb [place]. Medication Ordered: Albuterol Neb Tx 2 unit doses (NOW).
== END 2016-11-25 13:09 | disposition home or self-care (01) ==
LOC: ED SRH 13:04
DX: J20.8 Acute bronchitis due to other specified organisms (principal); I10 Essential (primary) hypertension; E11.9 Type 2 diabetes mellitus without complications; Z79.82 Long term (current) use of aspirin; Z79.899 Other long term (current) drug therapy; Z79.4 Long term (current) use of insulin; Z88.8 Allergy status to other drugs, medicaments and biological substances; Z88.2 Allergy status to sulfonamides; Z88.0 Allergy status to penicillin; Z88.1 Allergy status to other antibiotic agents